=== PATIENT | female | born 1955 | race Caucasian/White ===

== ENCOUNTER 2020-08-22 12:01 | Outpatient (CLI) | payer OTHER, SELFPAY ==
--- NOTE | 2020-08-22 12:56 | ECG_ITS ---
Measurements Intervals Ear[place] Rate: 69 P: 47 OH: 132 QRS: 59 QRSD: 109 T: 84 QT: 426 QTc: 458 Interpretive Statements SINUS RHYTHM DELAYED PRECORDIAL R/S TRANSITION NONSPECIFIC ST & T-WAVE ABNORMALITY- LAT/HIGH LAT LEADS BASELINE ARTIFACT- II, V5 BORDERLINE ECG Electronically Signed On 08-22-2020 13:10:45 CDT by Chacho Milton D.O.
== END 2020-08-22 12:02 ==
LOC: ANHCARD 09-16 12:01
PROVIDERS: PCP Family Medicine; Visit Provider Family Medicine
DX: I45.81 Long QT syndrome (principal); Z01.818 Encounter for other preprocedural examination
CPT/HCPCS: 93005

== ENCOUNTER → 2020-08-22 13:24 | Outpatient (CLI) | payer OTHER, SELFPAY ==
--- NOTE | ~2020-08-22 | US_ITS ---
EXAMINATION: US transvaginal DATE: 08/22/2020 13:48 INDICATION: Pelvic pain and postmenopausal bleeding TECHNIQUE: Multiple endovaginal sonographic images of the pelvis were obtained. COMPARISON: None. FINDINGS: The uterus measures 5.0 x 2.4 x 3.6 cm. The endometrial complex measures 15 mm. On one imag e, the endometrium appears to extend into the myometrium anteriorly. The right ovary measures 1.6 x 1 .0 x 1.7 cm. The left ovary measures 1.1 x 0.7 x 1.6 cm. There is normal vascular flow in the ovaries . There is no free fluid in the pelvis. IMPRESSION: 1. Endometrial thickening which may be due to hyperplasia, polyp, or malignancy. Endometrial sampling is recommended. Reviewed, dictated and finalized at location A. IMPRESSION: 1. Endometrial thickening which may be due to hyperplasia, polyp, or malignancy . Endometrial sampling is recommended.
== END ==
PROVIDERS: Visit Provider Obstetrics & Gynecology Gynecology
DX: R10.2 Pelvic and perineal pain (principal); N95.0 Postmenopausal bleeding
CPT/HCPCS: 76830

== ENCOUNTER → 2020-09-12 03:05 | Outpatient (CLI) | payer OTHER, SELFPAY ==
[2020-09-12 19:50] LABS: SARS-CoV-2 RNA PCR Negative
== END ==
PROVIDERS: PCP Family Medicine; Visit Provider Obstetrics & Gynecology Gynecology
DX: Z01.812 Encounter for preprocedural laboratory examination (principal); Z20.822 Contact with and (suspected) exposure to COVID-19
CPT/HCPCS: C9803; U0003; U0005

== ENCOUNTER 2020-09-15 00:09 | Day surgery (SDC) | payer OTHER, SELFPAY ==
[2020-09-02 15:25] VITALS: BMI 30.7
--- NOTE | 2020-09-15 07:12 | WPDHPUPDATE1 ---
History and Physical Update Update Date/Time: 09/15/20 07:12 History and Physical has been reviewed, including an updated exam of the patient. There are NO changes in the patient's condition. Risks, benefits, and alternatives have been discussed and questions answered. Patient agrees to proceed with procedure.
--- NOTE | 2020-09-15 07:12 | PM.HPGS ---
History of Present Illness History of Present Illness Consent: Risks, benefits, and alternatives have been discussed and questions answered. Patient agrees to proceed with procedure. Chief complaint: post menopausal bleeding Narrative: Debora Bacon is a 64 year old female who was a new patient to me in July. Patient states she has had bright red bleeding on and off since March of 2019. The most recent was approximately 4 months ago however the patient called after her appointment and had another episode of bleeding at the end of July. At the end of August,patient underwent pelvic ultrasound which revealed a thickened lining at 15mm and was otherwise normal. It was recommended that the patient proceed with hysteroscopy D and C. Risks of infection, bleeding, and perforation were reviewed. Possible pathology was discussed. Patient questions were answered and patient agreed to proceed. The patient did receive clearance from her primary care provider. Review of Systems Review of Systems: Narrative: not repeated day of surgery; patient states no changes in status Gastrointestinal: Gastrointestinal: Reports diarrhea Musculoskeletal: Musculoskeletal: Reports back pain and Reports arthralgias [facility] Past Medical History Medical History (Updated 09/15/20 @ 07:18 by Samantha Leung MD) Anxiety Arthritis Cataracts, bilateral Deafness in left ear Detached retina, left Fatty liver Glaucoma H/O mitral valve prolapse Hearing loss progressive Hyperlipemia Hypertension Irritable bowel syndrome (IBS) Long Q-T syndrome Migraine Ocular migraine Surgical History Surgical History (Updated 09/15/20 @ 07:18 by Samantha Leung MD) H/O dilation and curettage 1980 for SAb History of cochlear implant LEFT EAR Family History Family History Mother Hypertension Hypothyroid Father Anxiety Glioblastoma Grandparent Diabetes mellitus Heart disease Hypertension Cerebrovascular accident Grandparent Thyroid cancer Hypertension Cerebral hemorrhage Social History Social History (Updated 08/21/20 @ 11:02 by Addis Blevins CMA) Smoking status: Never smoker Alcohol intake: current Drinks per week: 5 Alcohol use details: i glass of wine 5 evenings a week Substance use: never Living arrangements: with family Additional occupation/education comments: RN/teacher Gender identity (if verbalized by the patient): Female Spiritual care concerns: No Agree to blood products: Yes Meds Home Medications and Allergies Home Medications Medication Instructions Recorded Confirmed Type atorvastatin 20 mg tablet 20 mg PO DAILY #90 tablet 05/12/20 09/02/20 Rx famotidine 20 mg tablet 20 mg PO DAILY PRN 05/12/20 09/02/20 History latanoprost 0.005 % eye drops 1 drp EACH EYE DAILY 05/12/20 09/02/20 History vit C 250 mg-vit E 90 mg-zinc 40 1 tablet PO BID 05/12/20 09/02/20 History mg-copper 1 [id number] capsule ergocalciferol (vitamin D2) 1,250 1,250 mcg PO WEEKLY #14 cap 05/26/20 09/02/20 Rx mcg (50,000 unit) capsule lisinopril 20 mg tablet 20 mg PO DAILY #90 tablet 08/21/20 09/02/20 Rx naproxen sodium [Aleve] 220 mg PO PRN 09/02/20 09/02/20 History Allergies Allergy/AdvReac Type Severity Reaction Status Date / Time amitriptyline AdvReac Severe LONG Q-T Verified 05/12/20 16:11 SYNDROME Exam Const: General: healthy appearing and alert Orientation/consciousness: patient oriented x3 Resp: Effort & Inspection: normal respiratory effort Auscultation: clear to auscultation bilaterally Cardio: Rate: regular rate Rhythm: regular rhythm GI: GI Palp: Yes Soft to palpation, No Tenderness to palpation present (GI) and No Palpable mass present : External Female Exam: normal external appearance Speculum Exam - Vagina: normal appearance of the vagina and normal vaginal discharge Speculum Exa
[2020-09-15 07:31] VITALS: BMI 30.6
[2020-09-15] MEDS: ACETAMINOPHEN 500 MG TABLET 1000 MG PO (07:41)
[2020-09-15 07:50] VITALS: BP 152/77; PULSE 85; RESP 16; TEMP 36.9; O2SAT 98
--- NOTE | 2020-09-15 08:04 | WPDANESEPPF ---
Anes - Initial Pre Proc Eval Procedure: Operation Date: 09/15/20 09:15 Proposed Procedures p Hysteroscopy Dilation and Curettage - Samantha Leung MD Date/Time: 09/15/20 08:04 Surgeon: Samantha Leung MD Pre Op Diagnosis: post menopausal bleeding Patient Data Age: 64 Gender: F Height: 1.68 m Weight: 86.1 kg Last Vital Signs Temp 36.9 C 09/15/20 07:50 Pulse 85 09/15/20 07:50 Resp 16 09/15/20 07:50 BP 152/77 H 09/15/20 07:50 Pulse Ox 98 09/15/20 07:50 Allergies Allergy/AdvReac Type Severity Reaction Status Date / Time amitriptyline AdvReac Severe LONG Q-T Verified 09/15/20 07:29 SYNDROME Home Medications Medication Instructions Recorded Confirmed Type atorvastatin 20 mg tablet 20 mg PO DAILY #90 tablet 05/12/20 09/15/20 Rx famotidine 20 mg tablet 20 mg PO DAILY PRN 05/12/20 09/15/20 History latanoprost 0.005 % eye drops 1 drp EACH EYE DAILY 05/12/20 09/15/20 History vit C 250 mg-vit E 90 mg-zinc 40 1 tablet PO BID 05/12/20 09/15/20 History mg-copper 1 [id number] capsule ergocalciferol (vitamin D2) 1,250 1,250 mcg PO WEEKLY #14 cap 05/26/20 09/15/20 Rx mcg (50,000 unit) capsule lisinopril 20 mg tablet 20 mg PO DAILY #90 tablet 08/21/20 09/15/20 Rx naproxen sodium [Aleve] 220 mg PO PRN 09/02/20 09/15/20 History Patient hx anesthesia problems: none Family hx anesthesia problems: none PMFSH Past Medical History Medical History (Updated 09/15/20 @ 07:18 by Samantha Leung MD) Anxiety Arthritis Cataracts, bilateral Deafness in left ear Detached retina, left Fatty liver Glaucoma H/O mitral valve prolapse Hearing loss progressive Hyperlipemia Hypertension Irritable bowel syndrome (IBS) Long Q-T syndrome Migraine Ocular migraine Surgical History Surgical History (Updated 09/15/20 @ 07:18 by Samantha Leung MD) H/O dilation and curettage 1979 for SAb History of cochlear implant LEFT EAR Family History Family History Mother Hypertension Hypothyroid Father Anxiety Glioblastoma Grandparent Diabetes mellitus Heart disease Hypertension Cerebrovascular accident Grandparent Thyroid cancer Hypertension Cerebral hemorrhage Social History Social History (Updated 08/21/20 @ 11:02 by Addis Blevins CMA) Smoking status: Never smoker Alcohol intake: current Drinks per week: 5 Alcohol use details: i glass of wine 5 evenings a week Substance use: never Living arrangements: with family Additional occupation/education comments: RN/teacher Gender identity (if verbalized by the patient): Female Spiritual care concerns: No Agree to blood products: Yes Anes - Eval Final PreProcedure Day of Procedure 09/15/20 08:04 Patient weight: obese Heart: regular rate and rhythm Lungs: clear to auscultation and normal air movement Airway: Mallampati scale class II Neurological: alert and oriented Last oral intake: >/= 8 hours ASA classification: III Emergent: no Anesthetic plan: proceed Anesthesia type and monitoring: general GIVS and standard monitoring Informed Consent: The patient's anesthetic plan and its attendant risks and benefits were discussed with the patient/family/POA. Questions were solicited and answers provided to the satisfaction of the patient/family/POA.
[2020-09-15] MEDS: LACTATED RINGERS 1,000 ML 30 ML IV CONT (08:21)
--- NOTE | 2020-09-15 09:51 | P.OP_ITS ---
Procedure Note - Detailed Date of Procedure 09/15/20 Pre-op Diagnosis post menopausal bleeding Post-op Diagnosis same Procedure Performed D and C hysteroscopy with MyoSure resection Surgeon Samantha Leung MD Anesthesia MAC and local Findings Stenotic cervix; uterus sounds to 8cm; very thickened and irregular endometrium with calcifications and increased vascularity with papillary lesions Description of Procedure The patient was taken to the operating room and placed under anesthesia in the dorsal lithotomy position. She was prepped and draped in the usual sterile fashion. Blackstock speculum was placed in the vagina and the cervix is grasped on the anterior lip with a tenaculum. Cervix was injected with 1% lidocaine in each quadrant. The uterus was attempted to be sounded and at 1cm the cervical os is stenotic. Os Finders are used and still unable to enter small dilator is used and was able to enter to approximately 4cm os Finders are again used and I was able to enter the cavity. Cervix was then serially dilated with Hegar size. The uterus was sounded to 8cm. The diagnostic hysteroscope was placed with the stated findings. The MyoSure device is opened and placed. Under direct visualization the lesions are resected. After the 2nd L of fluid there was a deficit of fluid and upon placing the 3rd L and visualization was returned there was noted to be a perforation. The procedure was stopped at this point all instruments are removed. The patient will be kept in recovery for extended period and the specimen is sent for frozen section to evaluate for additional tissue besides endometrium. Estimated Blood Loss 5 Drains No Packing No Pathology yes (Endometrial shavings) Complications Other complications (Uterine perforation) Condition stable Disposition PACU
[2020-09-15 09:55] VITALS: BP 124/79; PULSE 86; RESP 18; O2SAT 96
[2020-09-15] MEDS: fentaNYL CITRATE INJ (*CRX) 100 MCG/2 ML VIAL 25 MCG IV PUSH ×2 (10:03→10:17)
[2020-09-15 10:24] VITALS: BP 124/71; PULSE 71; RESP 18; O2SAT 97
--- NOTE | 2020-09-15 10:43 | P.PNOB_ITS ---
INFORMATION SYSTEMS SECURITY DEVELOPER - A/P Postoperative Procedures: Procedures Operation Date: 09/15/20 09:15 Actual Procedure Side Surgeon p Hysteroscopy Dilation and Curettage Not Applicable Samantha Leung MD Time Spent With Patient Time: Total time spent is greater than 50% in coordination of care (as documented) at patient's floor/unit and/or counseling patient: Time with patient: less than 15 minutes INFORMATION SYSTEMS SECURITY DEVELOPER- PN:Subj Post-Op Subjective Date/time seen: 09/15/20 10:43 Reviewed frozen section with and patient (still groggy from anesthesia). No bowel in frozen section only fat and uterus. 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 Recommend call for appt. for follow up and planning further. INFORMATION SYSTEMS SECURITY DEVELOPER - PN: Obj Data Vital Signs Vital Signs: Vital Signs - 24 hr 09/15/20 07:50 09/15/20 09:55 09/15/20 10:24 Temperature 98.5 F Pulse Rate 85 86 71 Respiratory Rate 16 18 18 Blood Pressure 152/77 H 124/79 124/71 Pulse Oximetry 98 96 97 Intake/Output Intake/Output: Intake & Output 09/12/20 09/13/20 09/14/20 09/15/20 23:59 23:59 23:59 23:59 Intake Total 100 Balance 100 Meds/Results Medications: Active Medications Generic Name Dose Route Start Last Admin Trade Name Freq PRN Reason Stop Dose Admin Fentanyl Citrate 25 mcg 09/15/20 08:04 09/15/20 10:17 Fentanyl Citrate Inj (*Crx) 100 Mcg/2 Ml Vial IV PUSH 25 mcg Q2M PRN Administration Pain Lactated Ringer's 1,000 mls @ 30 mls/hr 09/15/20 08:05 09/15/20 10:34 Lr - Lactated Ringers Iv IV CONT Infused .Q24H LEIGHANN Infusion Lactated Ringer's 1,000 mls @ 30 mls/hr 09/15/20 08:05 Lr - Lactated Ringers Iv IV CONT .Q24H LEIGHANN Oxycodone HCl 5 mg 09/15/20 08:04 Oxycodone Hcl (*Crx) 5 Mg Tab Ir PO ONCE PRN Pain
[2020-09-15] MEDS: oxyCODONE HCL (*CRX) 5 MG TAB IR PO (10:51)
[2020-09-15 10:52] VITALS: BP 138/73; PULSE 58; RESP 16; O2SAT 96
[2020-09-15 11:15] VITALS: BP 139/76; PULSE 65; RESP 16
== END 2020-09-15 11:30 | disposition home or self-care (01) ==
PROVIDERS: PCP Family Medicine; Visit Provider Obstetrics & Gynecology Gynecology
PROC: 0U5B8ZZ Destruction of Endometrium, Via Natural or Artificial Opening Endoscopic (ICD-10-PCS; CPT 58563; principal; 2020-09-15 09:15)
DX: C54.1 Malignant neoplasm of endometrium (principal); N95.0 Postmenopausal bleeding; N88.2 Stricture and stenosis of cervix uteri; F41.9 Anxiety disorder, unspecified; M19.90 Unspecified osteoarthritis, unspecified site; K76.0 Fatty (change of) liver, not elsewhere classified; I34.1 Nonrheumatic mitral (valve) prolapse; E78.5 Hyperlipidemia, unspecified; I10 Essential (primary) hypertension; K58.9 Irritable bowel syndrome, unspecified; E66.9 Obesity, unspecified; Z68.30 Body mass index [BMI] 30.0-30.9, adult
CPT/HCPCS: 58558; 88305; 88331; 88342; 93005; A9270; C9803; J2250; J2405; J2704; J3010; J7030; J7120; U0003; U0005

== ENCOUNTER → 2020-09-19 13:03 | Outpatient (CLI) | payer OTHER, SELFPAY ==
--- NOTE | ~2020-09-19 | DEXA_ITS ---
Bone Density Report Name: Debora Bacon Age: 64 Sex: Female Ethnicity: White Date of : 1955 Indication: postmenopausal; screening for osteoporosis; height loss; cancer; Referring Provider: STEPHY KNIGHT Study: Bone densitometry was performed. Exam Date: September 19, 2020 Accession number: [id number] Bone Density: Region BMD T-score Z-score Classification AP Spine (L1-L4) 0.938 -1.0 0.7 Normal Femoral Neck (Left) 0.663 -1.7 -0.2 Osteopenia Total Hip (Left) 0.771 -1.4 -0.2 Osteopenia Femoral Neck (Right) 0.622 -2.0 -0.6 Osteopenia Total Hip (Right) 0.737 -1.7 -0.5 Osteopenia Total Hip Mean 0.754 -1.6 -0.4 Osteopenia World Health Organization criteria for BMD impression classify patients as: Normal (T-score at or above -1.0), Osteopenia (T-score between -1.0 and -2.5), or Osteoporosis (T-score at or below -2.5). 10-year Fracture Risk(1): Major Osteoporotic Fracture 10% Hip Fracture 1.4% Reported Risk Factors: [place] (), Neck BMD=0.622, BMI=30.4 (1) FRAX(R) Version 3.08. Fracture probability calculated for an untreated patient. Fracture probability may be lower if the patient has received treatment. Clinical Information Provided by Patient: Has used the following medications: Vitamin D, GINA Has the following medical conditions: Cancer Patient maximum height was 67.0 Menopause Age: 54 No regular weight bearing exercise Does not regularly consume dairy products Drinks caffeinated beverages Onset of menses at age 13 Number of children 0 Impression: The patient has low bone mass, based on the Right Femoral Neck T-score. The patient has an estimated ten-year risk of hip fracture of 1.4% and an estimated ten-year risk of major fracture of 10%, based on the WHO FRAX algorithm. Discussion: BONE DENSITY IS LOW AT ONE OR MORE SKELETAL SITES. This patient's lowest T-score is low at one or more skeletal sites. It meets the World Health Organization's (WHO) criteria for ?low bone mass? (T-score between -1.0 and -2.5). The patient's 10-year risk of fracture as calculated by FRAX is less than the threshold where pharmacological therapy is recommended by the National Osteoporosis Foundation (NOF). However, all treatment decisions require clinical judgment and consideration of individual patient factors, including patient preferences, comorbidities, previous drug use, risk factors not captured in the FRAX model (e.g., frailty, falls, vitamin D deficiency, increased bone turnover, interval significant decline in bone density) and possible under or overestimation of fracture risk by FRAX. The patient should follow a healthful lifestyle (good nutrition with adequate calcium and vitamin D, and appropriate weight-bearing exercise). Follow-Up: Consider repeating this study in 2 to 3 years to reasses
== END ==
PROVIDERS: PCP Family Medicine; Visit Provider Family Medicine
DX: Z78.0 Asymptomatic menopausal state (principal); M85.852 Other specified disorders of bone density and structure, left thigh; M85.851 Other specified disorders of bone density and structure, right thigh
CPT/HCPCS: 77080

== ENCOUNTER 2020-12-05 13:35 | Outpatient (CLI) | payer OTHER, SELFPAY ==
--- NOTE | ~2020-12-05 | XR_ITS ---
EXAMINATION: XR lumbar spine min 4V EXAM DATE: 12/05/2020 14:03 INDICATION: M54.9 - Dorsalgia, unspecified. TECHNIQUE: Lumber spine frontal, lateral, bilateral oblique projections. Coned down frontal and lat eral L5-S1 lumbar projections for interpretation. Comparison is made to prior examination from 019. FINDINGS: There is no spondylolysis. There is moderate lower lumbar facet arthropathy and L5-S1 disc disease, mild to moderate at L4-5. Mild disc disease at the upper lumbar levels. Small to moderate br idging endplate osteophytes at mid lumbar levels. Sacrum, sacroiliac joints, sacral arcuate lines are intact. Paraspinal soft tissue is unremarkable. Difficult to appreciate significant change compared to 2019. IMPRESSION: Moderate lumbar spondylosis. Reviewed, dictated and finalized at location B.
--- NOTE | ~2020-12-05 | XR_ITS ---
EXAMINATION: XR thoracic spine 3V EXAM DATE: 12/05/2020 14:03 INDICATION: M54.9 - Dorsalgia, unspecified . TECHNIQUE: Frontal and lateral projections of the thoracic spine as well as lateral swimmers projecti on of the upper thoracic spine for interpretation. There is no prior study for comparison. FINDINGS: The vertebral bodies are aligned in the AP dimension. Vertebral body and disc heights are well-maintained. There are no bony erosions identified. Paraspinal soft tissue is unremarkable. IMPRESSION: Unremarkable thoracic spine. Reviewed, dictated and finalized at location B.
== END 2020-12-05 13:36 | disposition home or self-care (01) ==
PROVIDERS: PCP Family Medicine; Visit Provider Physician Assistant
DX: M47.815 Spondylosis without myelopathy or radiculopathy, thoracolumbar region (principal)
CPT/HCPCS: 72072; 72110

== ENCOUNTER → 2021-08-28 12:45 | Outpatient (CLI) | payer OTHER, SELFPAY ==
--- NOTE | ~2021-08-28 | XR_ITS ---
EXAMINATION: XR ribs RT 2V w CXR 2V, XR thoracic spine 2V DATE: 08/28/2021 13:40 INDICATION: Thoracic spine pain and pleurodynia TECHNIQUE: 1. PA and lateral views of the chest and 3 views of the right ribs were obtained. 2. AP, lateral and lateral swimmer's views of the thoracic spine were obtained. COMPARISON: Thoracic spine radiographs dated 12/05/2020 FINDINGS: Chest and ribs: No rib fractures identified. No pneumothorax. No focal infiltrates, pleural effusion or pulmonary ben ma. Cardiomediastinal silhouette is normal. Thoracic spine: Alignment is normal. Unchanged mild anterior wedging at T6 and minimal at T7 and T8. Disc heights are relatively preserved. Paraspinal soft tissues are unremarkable. IMPRESSION: 1. No rib fracture or acute cardiopulmonary disease. 2. Chronic minimal to mild anterior wedging of a few mid thoracic vertebral bodies. Reviewed, dictated and finalized at location B. IMPRESSION: 1. No rib fracture or acute cardiopulmonary disease. 2. Chronic minimal to mild anterior wedging of a few mid thoracic vertebral bod ies.
== END ==
PROVIDERS: PCP Family Medicine; Visit Provider Family Medicine
DX: R07.81 Pleurodynia (principal); M48.54XA Collapsed vertebra, not elsewhere classified, thoracic region, initial encounter for fracture
CPT/HCPCS: 71046; 71100; 72070

== ENCOUNTER 2022-11-09 01:02 | Day surgery (SDC) | payer MEDICARE, OTHER, SELFPAY ==
[2022-10-27 14:50] VITALS: BMI 31.6
[2022-11-09 09:45] VITALS: BP 109/71; PULSE 89; RESP 18; TEMP 36.8; O2SAT 97
--- NOTE | 2022-11-09 09:54 | WPDANESEPPF ---
Anes - Initial Pre Proc Eval Procedure: Operation Date: 11/09/22 11:00 Proposed Procedures p Screening Colonoscopy - Chester Benjamin MD Date/Time: 11/09/22 09:54 Surgeon: Chester Benjamin MD Pre Op Diagnosis: neoplasm screening Patient Data Age: 67 Gender: F Height: 1.68 m Weight: 86.3 kg Last Vital Signs Temp 36.8 C 11/09/22 09:45 Pulse 89 11/09/22 09:45 Resp 18 11/09/22 09:45 BP 109/71 11/09/22 09:45 Pulse Ox 97 11/09/22 09:45 O2 Del Method Room Air 11/09/22 09:45 Allergies Allergy/AdvReac Type Severity Reaction Status Date / Time No Known Allergies Allergy Verified 11/09/22 09:44 Home Medications Medication Instructions Recorded Confirmed Type famotidine 20 mg tablet (Pepcid AC) 20 mg PO DAILY PRN Indigestion 05/12/20 10/27/22 History latanoprost 0.005 % eye drops 1 drp EACH EYE DAILY 05/12/20 10/27/22 History mecobalamin (vitamin B12) 1,000 1,000 mcg sublingual DAILY #30 tabs 04/09/22 10/27/22 Rx mcg disintegrating tablet,sublingual lisinopril 20 mg tablet 20 mg PO DAILY #90 tabs 05/23/22 10/27/22 Rx atorvastatin 20 mg tablet 20 mg PO DAILY #90 tabs 06/21/22 10/27/22 Rx ergocalciferol (vitamin D2) 1,250 1,250 mcg PO WEEKLY #12 caps 08/13/22 10/27/22 Rx mcg (50,000 unit) capsule naproxen sodium 220 mg tablet 220 mg PO BID PRN Pain 10/06/22 10/27/22 History (Aleve) sodium,potassium,mag sulfates 17.5 See Rx Instructions PO .COMPLEX 10/13/22 Rx gram-3.13 gram-1.6 gram oral soln #354 mL (Suprep Bowel Prep Kit) Patient hx anesthesia problems: none Family hx anesthesia problems: none Results Review: All pre-operative results and documents have been reviewed as part of the pre-operative evaluation. [facility] Past Medical History Medical History Anxiety Arthritis Cataracts, bilateral Deafness in left ear Detached retina, left Fatty liver FH: premature coronary heart disease Glaucoma H/O mitral valve prolapse Hearing loss progressive Hyperlipemia Hypertension Irritable bowel syndrome (IBS) Long Q-T syndrome Migraine Ocular migraine Vitamin D deficiency Surgical History Surgical History H/O detached retina repair H/O dilation and curettage 1979 for SAb History of cochlear implant LEFT EAR History of hysterectomy with bilateral oophorectomy Family History Family History Mother Hypertension Hypothyroid Father Anxiety Glioblastoma Grandparent Diabetes mellitus Heart disease Hypertension Cerebrovascular accident Grandparent Thyroid cancer Hypertension Cerebral hemorrhage Other Multiple myeloma Social History Social History Smoking status: Never smoker Second hand tobacco smoke exposure: No Alcohol intake: current Drinks per week: 2 Alcohol use details: wine Substance use: never Substance use type: does not use Lack of Transportation: No Lack of Food: Never True Current Housing: I Have Housing Concerned About Future Housing: No Difficulty Paying Gas/Electric Bills: No Difficulty Paying for Meds: No Currently Unemployed: No Education: Master's Degree or Higher Difficulty w/ Childcare or Family Care: No Living arrangements: with family Occupation/Education: retired Additional occupation/education comments: RN/teacher Gender identity (if verbalized by the patient): Female Spiritual care concerns: No Agree to blood products: Yes Anes - Eval Final PreProcedure Day of Procedure 11/09/22 09:55 Patient weight: overweight Heart: regular rate and rhythm Lungs: clear to auscultation Airway: Mallampati scale class II Neurological: alert and oriented Last oral intake: >/= 8 hours ASA classification: III Emergent: no Anesthetic plan: proceed A
[2022-11-09] MEDS: LACTATED RINGERS 1,000 ML 150 ML IV CONT (09:57)
--- NOTE | 2022-11-09 10:01 | WPDHPUPDATE1 ---
History and Physical Update Update Date/Time: 11/09/22 10:01 History and Physical has been reviewed, including an updated exam of the patient. There are NO changes in the patient's condition. Risks, benefits, and alternatives have been discussed and questions answered. Patient agrees to proceed with procedure.
[2022-11-09 11:26] VITALS: BP 149/76; PULSE 71; RESP 24; O2SAT 95
[2022-11-09 11:36] VITALS: BP 131/77; PULSE 60; RESP 18; O2SAT 96
[2022-11-09 11:46] VITALS: BP 130/77; PULSE 65; RESP 20; O2SAT 97
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
== END 2022-11-09 11:51 | disposition home or self-care (01) ==
PROVIDERS: PCP Family Medicine; Visit Provider Internal Medicine Gastroenterology
PROC: 0DJD8ZZ Inspection of Lower Intestinal Tract, Via Natural or Artificial Opening Endoscopic (ICD-10-PCS; CPT 45378; principal; 2022-11-09 11:00)
DX: Z12.11 Encounter for screening for malignant neoplasm of colon (principal); K64.8 Other hemorrhoids; K57.30 Diverticulosis of large intestine without perforation or abscess without bleeding; I10 Essential (primary) hypertension; E78.5 Hyperlipidemia, unspecified; H40.9 Unspecified glaucoma; K76.0 Fatty (change of) liver, not elsewhere classified; E55.9 Vitamin D deficiency, unspecified
CPT/HCPCS: 45380; 88305; J2704; J7120

== ENCOUNTER 2023-03-01 10:03 | Outpatient (CLI) | payer MEDICARE, OTHER, SELFPAY ==
--- NOTE | ~2023-03-01 | XR_ITS ---
Clinical Indication: Shortness of breath PA and lateral views of the chest: Comparison: 08/28/2021 Findings: The lungs are clear, without evidence of focal consolidation or pleural effusion. Cardiome diastinal silhouette is within normal limits. Bones and soft tissues are unremarkable. Impression: Normal chest. Reviewed, dictated and finalized at [facility]. E INSPECTOR Impression: Normal chest.
--- NOTE | 2023-03-01 10:31 | ECG_ITS ---
Measurements Intervals [place] Rate: 68 P: 35 LA: 134 QRS: 60 QRSD: 94 T: 85 QT: 428 QTc: 456 Interpretive Statements SINUS RHYTHM LOW QRS VOLTAGE IN PRECORDIAL LEADS BORDERLINE ST-T WAVE ABNORMALITY- HIGH LATERAL LEADS BORDERLINE ECG COMPARED TO ECG 08/22/2020 13:06:43 NO SIGNIFICANT CHANGES Electronically Signed On 03-01-2023 11:49:14 [employer] by Chacho Milton D.O.
== END 2023-03-01 10:04 | disposition home or self-care (01) ==
PROVIDERS: PCP Family Medicine; Visit Provider Physician Assistant
DX: R06.02 Shortness of breath (principal); R94.31 Abnormal electrocardiogram [ECG] [EKG]
CPT/HCPCS: 71046; 93005

== ENCOUNTER 2024-03-16 12:12 | Outpatient (CLI) | payer OTHER, SELFPAY ==
--- NOTE | ~2024-03-16 | XR_ITS ---
XR hip RT min 2V 03/16/2024 12:25 Indication: Right hip pain Procedure: 2 views right hip Comparison: No prior studies for comparison. Findings: There is mild osteoarthritis of the right hip. No fracture, subluxation or dislocation. No foreign bodies. Impression: 1: Mild osteoarthritis of the right hip. Reviewed, dictated and finalized at location B. SHER BRASS Impression: 1: Mild osteoarthritis of the right hip.
== END 2024-03-16 12:13 | disposition home or self-care (01) ==
PROVIDERS: PCP Family Medicine; Visit Provider Family Medicine
DX: M16.11 Unilateral primary osteoarthritis, right hip (principal)
CPT/HCPCS: 73502

== ENCOUNTER 2025-01-15 13:08 | Outpatient (CLI) | payer OTHER, SELFPAY ==
--- NOTE | ~2025-01-15 | DEXA_ITS ---
Bone Density Report Name: PALOMA FERNÁNDEZ Age: 69 Sex: Female Ethnicity: White Date of : 1955 Indication: osteopenia; cancer; hysterectomy; Referring Provider: STEPHY KNIGHT Study: Bone densitometry was performed. Exam Date: January 15, 2025 Accession number: [id number] Bone Density: Region BMD T-score Z-score Classification AP Spine(L1-L4) 0.945 -0.9 1.1 Normal Femoral Neck (Left) 0.666 -1.6 0.0 Osteopenia Total Hip (Left) 0.717 -1.8 -0.4 Osteopenia Femoral Neck (Right) 0.618 -2.1 -0.4 Osteopenia Total Hip (Right) 0.660 -2.3 -0.9 Osteopenia Total Hip Mean 0.688 -2.1 -0.7 Osteopenia World Health Organization criteria for BMD impression classify patients as: Normal (T-score at or above -1.0), Osteopenia (T-score between -1.0 and -2.5), or Osteoporosis (T-score at or below -2.5). 10-year Fracture Risk(1): Major Osteoporotic Fracture 11% Hip Fracture 1.9% Reported Risk Factors: [place] (), Neck BMD=0.618, BMI=31.4 (1) FRAX(R) Version 3.08. Fracture probability calculated for an untreated patient. Fracture probability may be lower if the patient has received treatment. Previous Exams: -- Region Exam Age BMD T-score BMD Change BMD Change Date g/cm2 vs Baseline vs Previous -- AP Spine (L1-L4) 01/15/2025 69 0.945 -0.9 0.7%# 0.7%# 09/19/2020 64 0.938 -1.0 Total Hip(Left) 01/15/2025 69 0.717 -1.8 -7.0%# -7.0%# 09/19/2020 64 0.771 -1.4 Total Hip(Right) 01/15/2025 69 0.660 -2.3 -10.6%# -10.6%# 09/19/2020 64 0.737 -1.7 -- *Denotes significance at 95% confidence level, LSC for AP Spine = 0.022 g/cm2, LSC for Total Hip = 0.027 g/cm2 # Denotes dissimilar scan types or analysis methods Clinical Information Provided by Patient: Has used the following medications: Vitamin D Has the following medical conditions: Cancer, Hysterectomy Patient maximum height was 66 Menopause Age: 54 No regular weight bearing exercise Does not regularly consume dairy products Drinks caffeinated beverages Onset of menses at age 13 Number of children 0 Impression: The patient has low bone mass, based on the Right Total Hip T-score. The patient has an estimated ten-year risk of hip fracture of 1.9% and an estimated ten-year risk of major fracture of 11%, based on the WHO FRAX algorithm. Unable to evaluate interval change due to the use of different scan modes. Discussion: BONE DENSITY IS LOW AT ONE OR MORE SKELETAL SITES. This patient's lowest T-score is low at one or more skeletal sites. It meets the World Health Organization's (WHO) criteria for ?low bone mass? (T-score between -1.0 and -2.5). The patient's 10-year risk of fracture as calculated by FRAX is less than the threshold where pharmacological therapy is recommended by the National Osteoporosis Foundation (NOF). However, all treatment decisions require clinical judgment and consideration of individual patient factors, including patient preferences, comorbidities, previous drug use, risk factors not captured in the FRAX model (e.g., frailty, falls, vitamin D deficiency, increased bone turnover, interval significant decline in bone density) and possible under or overestimation of fracture risk by FRAX. The patient should follow a healthful lifestyle (good nutrition with adequate calcium and vitamin D, and appropriate weight-bearing exercise). Follow-Up: Consider repeating this study in 2 to 3 years to reassess this patient's status, or sooner if there is some new clinical indication. Reported by: ANGELICA on 01/15/2025 1:48:00 PM. Reviewed, dictated and finalized at location A.
== END 2025-01-15 13:09 | disposition home or self-care (01) ==
PROVIDERS: PCP Family Medicine; Visit Provider Family Medicine
DX: Z78.0 Asymptomatic menopausal state (principal); M85.852 Other specified disorders of bone density and structure, left thigh; M85.851 Other specified disorders of bone density and structure, right thigh
CPT/HCPCS: 77080